=== PATIENT | female | born 2000 | race Caucasian/White ===

== ENCOUNTER 2020-09-27 15:37 | Emergency (ER) | payer OTHER, MEDICAID ==
[~2020-09-27] VITALS: Ht 175.3 cm; Wt 67.6 kg
[2020-09-27 16:24] LABS: INFLUENZA A ANTIGEN Negative (Negative); INFLUENZA B ANTIGEN Negative (Negative)
[2020-09-27] MEDS ORDERED: ZPAK PO (16:33)
[2020-09-27 16:40] VITALS: BP 132/70
== END 2020-09-27 16:41 | disposition home or self-care (01) ==
LOC: M.ERS 15:37
PROVIDERS: Family Medicine
DX: O99.511 Diseases of the respiratory system complicating pregnancy, first trimester (principal); J98.8 Other specified respiratory disorders; Z20.822 Contact with and (suspected) exposure to COVID-19; J02.9 Acute pharyngitis, unspecified; Z3A.12 12 weeks gestation of pregnancy

== ENCOUNTER 2020-12-07 14:23 | Emergency (ER) | payer OTHER, MEDICAID ==
[~2020-12-07] VITALS: Ht 175.3 cm; Wt 71.7 kg
[~2020-12-07 14:23] MED LIST: ZPAK PO
[2020-12-07] MEDS ORDERED: AMOXICILLIN 50500 MG PO (15:06)
[2020-12-07 15:13] VITALS: BP 120/70
== END 2020-12-07 15:15 | disposition home or self-care (01) ==
LOC: M.ERS 14:23
DX: O26.892 Other specified pregnancy related conditions, second trimester (principal); S40.262A Insect bite (nonvenomous) of left shoulder, initial encounter; Z3A.21 21 weeks gestation of pregnancy; W57.XXXA Bitten or stung by nonvenomous insect and other nonvenomous arthropods, initial encounter; Y93.89 Activity, other specified; Y92.89 Other specified places as the place of occurrence of the external cause; Y99.8 Other external cause status